=== PATIENT | female | born 1970 | race Two or more races ===

== ENCOUNTER 2024-08-13 18:45 | Emergency (ER) | payer OTHER ==
[~2024-08-13] VITALS: Ht 154.9 cm; Wt 76.2 kg
[2024-08-13] MEDS ORDERED: ZOCOR20 MG PO (18:53)
[2024-08-13] MEDS ORDERED: NORFLEX100MG PO (20:57)
[2024-08-13] MEDS ORDERED: TYLENOL ARTHRI650 MG PO (20:57)
[2024-08-13] MEDS ORDERED: DEXAMETHASONE SODIUM PHOSPHATE 4 MG/ML VIAL IM ONE (21:00)
[2024-08-13] MEDS ORDERED: ORPHENADRINE CITRATE 30 MG/ML AMPUL IM ONE (21:00)
== END 2024-08-14 00:02 ==
LOC: ER 18:45
DX: M54.50 Low back pain, unspecified (principal); Z88.6 Allergy status to analgesic agent; Z88.0 Allergy status to penicillin